=== PATIENT | male | born 1970 | race Native Hawaiian/Other Pacific Islander ===

== ENCOUNTER 2023-05-16 11:50 | Outpatient (CLI) | payer OTHER | END 2023-05-16 18:41 | disposition home or self-care (01) | LOC: LABW 11:50 | PROVIDERS: ATTEND Nurse Practitioner Family | DX: E78.49 Other hyperlipidemia (principal); G93.32 Myalgic encephalomyelitis/chronic fatigue syndrome; I10 Essential (primary) hypertension; E07.9 Disorder of thyroid, unspecified; R55 Syncope and collapse; R30.0 Dysuria | CPT/HCPCS: 36415; 82670; 84153; 84402; 84403; 85014; 85018 ==